=== PATIENT | male | born 1950 | race African-American/Black ===

== ENCOUNTER 2019-02-02 12:36 | Emergency (ER) | payer MEDICARE, MEDICAID ==
[~2019-02-02] VITALS: Ht 182.9 cm; Wt 77.0 kg
[2019-02-02] MEDS ORDERED: HYDROCODONE/ACETAMINOPHEN 5/325MG TABLET PO ONE (14:30)
[2019-02-02] MEDS ORDERED: TETANUS, DIPHTHERIA, PERTUSSIS VAC/PF 0.5ML (>7YR OLD) IM ONE (16:30)
[2019-02-02 16:40] VITALS: BP 156/89
== END 2019-02-02 16:41 | disposition home or self-care (01) ==
LOC: ER 13:36
DX: S90.32XA Contusion of left foot, initial encounter (principal); W22.8XXA Striking against or struck by other objects, initial encounter; Y93.89 Activity, other specified; Y92.018 Other place in single-family (private) house as the place of occurrence of the external cause
CPT/HCPCS: 73610; 73630; 90471; 90715; 99283

== ENCOUNTER 2019-02-24 17:42 | Inpatient (IN) | payer MEDICARE, MEDICAID ==
[~2019-02-24] VITALS: Ht 182.9 cm; Wt 74.4 kg
[2019-02-24] MEDS ORDERED: SODIUM CHLORIDE 0.9% 1,000 ML IV ONE (18:19)
[2019-02-24 18:53] LABS: HEMATOCRIT. 37.9 % (42.0-52.0); HEMOGLOBIN. 12.3 g/dL (14.0-18.0); MEAN CORPUSCULAR HEMOGLOBIN 28.3 pg (28.0-32.0); MEAN CORPUSCULAR VOLUME 87.6 fL (80.0-94.0); MEAN PLATELET VOLUME 6.6 fl (7.4-10.4); PLATELET 165 x1000/uL (130-400); RED BLOOD CELL COUNT 4.33 mill/uL (4.7-6.1); RED CELL DISTRIBUTION WIDTH 13.8 % (11.6-14.6)
[2019-02-24 18:59] LABS: CHLORIDE 111 mEq/L (98-107)
[2019-02-24 19:10] LABS: PLATELET ESTIMATE NORMAL
[2019-02-24] MEDS ORDERED: PIPERACILLIN/TAZ 3.375G PREMIX 50 ML IV NR (20:30)
[2019-02-24] MEDS ORDERED: VANCOMYCIN 1 G PREMIX 200 ML IV NR (20:30)
[2019-02-24] MEDS ORDERED: SODIUM CHLORIDE 0.9% 1000ML BAG (SEPSIS BOLUS) IV ONE (20:30)
[2019-02-24] MEDS ORDERED: SODIUM CHLORIDE 0.9% 2,100 ML IV SCH (21:00)
[2019-02-24] MEDS ORDERED: ZOLPIDEM TARTRATE 5MG TABLET PO PRN (21:30)
[2019-02-24] MEDS ORDERED: ONDANSETRON HCL 4MG/2ML INJ IV PRN (21:30)
[2019-02-24] MEDS ORDERED: ACETAMINOPHEN 325MG TABLET PO PRN (21:30)
[2019-02-24 22:22] LABS: HEPATITIS B SURFACE ANTIGEN NEGATIVE
[2019-02-24 22:51] LABS: HEPATITIS A AB IGM NEGATIVE (NEGATIVE)
[2019-02-24 23:45] VITALS: BP 99/46
[2019-02-25] VITALS: BP 99/46
[2019-02-25] MEDS ORDERED: BICT1TAB PO (01:49)
[2019-02-25] MEDS ORDERED: HYDR-4001 PO (01:56)
[2019-02-25] MEDS ORDERED: CEPH500T PO (01:56)
[2019-02-25] MEDS ORDERED: LINE600T32 MT (02:02)
[2019-02-25] MEDS ORDERED: SULF1TAB48 PO (02:02)
[2019-02-25] MEDS: KETOROLAC 30MG/ML VIAL IV PRN ×2 (02:34→07:39)
[2019-02-25] MEDS: PIPERACILLIN/TAZ 3.375G PREMIX 50 ML IV SCH ×3 (03:24→18:27)
[2019-02-25 04:00] VITALS: BP 98/48
[2019-02-25 06:28] LABS: HEMOGLOBIN. 11.1 g/dL (14.0-18.0); MEAN CORPUSCULAR HEMOGLOBIN 28.7 pg (28.0-32.0); MEAN CORPUSCULAR VOLUME 85.7 fL (80.0-94.0); MEAN PLATELET VOLUME 6.9 fl (7.4-10.4); PLATELET 163 x1000/uL (130-400); RED BLOOD CELL COUNT 3.85 mill/uL (4.7-6.1); RED CELL DISTRIBUTION WIDTH 13.6 % (11.6-14.6)
[2019-02-25 06:44] LABS: CHLORIDE 108 mEq/L (98-107)
[2019-02-25 08:00] VITALS: BP 120/67
[2019-02-25] MEDS: VANCOMYCIN 750 MG PREMIX 150 ML IV SCH ×2 (08:34→21:27)
[2019-02-25] MEDS ORDERED: MORPHINE SULFATE 2 MG/ML CPJ (NOT FOR IM USE) IV PRN (09:30)
[2019-02-25] MEDS: MORPHINE SULFATE 4 MG/ML CPJ (NOT FOR IM USE) IV PRN ×3 (11:14→23:05)
[2019-02-25 11:36] VITALS: BP 106/55
[2019-02-25 12:58] LABS: INR 1.3; PROTHROMBIN TIME 13.1 sec (9.6-11.0)
[2019-02-25] MEDS: HYDROCODONE/ACETAMINOPHEN 5/325MG TABLET PO PRN ×2 (13:07→17:38)
[2019-02-25 16:00] VITALS: BP 109/69
[2019-02-25] MEDS ORDERED: PIPERACILLIN/TAZ 3.375G PREMIX 50 ML IV SCH (17:30)
[2019-02-25 17:31] LABS: PLATELET ESTIMATE NORMAL
[2019-02-25] MEDS: BIKTARVY PO SCH (17:32)
[2019-02-25 20:00] VITALS: BP 100/53
[2019-02-26] VITALS: BP 113/63
[2019-02-26] MEDS: PIPERACILLIN/TAZ 3.375G PREMIX 50 ML IV SCH ×3 (00:24→13:18)
[2019-02-26 04:00] VITALS: BP 108/61
[2019-02-26 06:17] LABS: BASOPHILS % 0.4 % (0.0-2.0); HEMATOCRIT. 32.6 % (42.0-52.0); HEMOGLOBIN. 10.8 g/dL (14.0-18.0); MEAN CORPUSCULAR HEMOGLOBIN 28.1 pg (28.0-32.0); MEAN PLATELET VOLUME 7.5 fl (7.4-10.4); MONOCYTES % 9.5 % (2.0-8.0); NEUTROPHILS % 60.1 % (40.0-76.0); PLATELET 143 x1000/uL (130-400); RED BLOOD CELL COUNT 3.84 mill/uL (4.7-6.1); RED CELL DISTRIBUTION WIDTH 13.8 % (11.6-14.6)
[2019-02-26 06:31] LABS: CLARITY URINE CLEAR (CLEAR); COLOR URINE YELLOW (YELLOW); KETONES URINE NEGATIVE (NEGATIVE); LEUKOCYTE ESTERASE URINE NEGATIVE (NEGATIVE); NITRITE URINE NEGATIVE (NEGATIVE); OCCULT BLOOD URINE NEGATIVE (NEGATIVE); PH URINE 5.5 (4.5-8.0); PROTEIN URINE NEGATIVE (NEGATIVE); SPECIFIC GRAVITY URINE 1.016 (1.005-1.030); UROBILINOGEN URINE 0.2 E.U./dL (0.2-1.0)
[2019-02-26 06:48] LABS: *AMPHETAMINES SCREEN URINE NEGATIVE (NEGATIVE)
[2019-02-26 06:49] LABS: *BARBITURATES SCREEN URINE NEGATIVE (NEGATIVE); *BENZODIAZEPINES SCREEN URINE NEGATIVE (NEGATIVE); *COCAINE SCREEN URINE PRESUMTIVE POSITIVE (NEGATIVE); METHADONE URINE SCREEN NEGATIVE (NEGATIVE); OPIATES URINE SCREEN PRESUMTIVE POSITIVE (NEGATIVE); PHENCYCLIDINE URINE SCREEN NEGATIVE (NEGATIVE)
[2019-02-26 06:50] LABS: CANNABINOID URINE SCREEN NEGATIVE (NEGATIVE)
[2019-02-26] MEDS ORDERED: PROPOFOL 200MG/20ML VIAL IV ONE (06:53)
[2019-02-26] MEDS ORDERED: MIDAZOLAM HCL 2 MG/2 ML VIAL ONE (06:53)
[2019-02-26] MEDS ORDERED: FENTANYL CITRATE/PF 50MCG/ML 2ML VIAL ONE (06:53)
[2019-02-26] MEDS ORDERED: LIDOCAINE HCL/PF 1% 10 MG/ML 5ML VIAL ONE (06:56)
[2019-02-26] MEDS ORDERED: LIDOCAINE HCL/EPINEPHRINE 1%-EPI 1:100,000 20 ML VIAL ONE (06:59)
[2019-02-26 07:12] LABS: CHLORIDE 108 mEq/L (98-107)
[2019-02-26] MEDS ORDERED: BACITRACIN 50,000 UNITS/VIAL ONE (07:21)
[2019-02-26] MEDS ORDERED: LIDOCAINE HCL 1% 20ML VIAL (Pyxis) INJ ONE (07:35)
[2019-02-26] MEDS ORDERED: BUPIVACAINE HCL/PF 0.5% (5MG/ML) 10ML ONE (07:36)
[2019-02-26 08:14] LABS: ABSOLUTE EOSINOPHILS 0.1 x10E3/uL (0.0-0.4); ABSOLUTE LYMPHOCYTES 0.3 x10E3/uL (0.7-3.1); ABSOLUTE MONOCYTES 0.1 x10E3/uL (0.1-0.9); ABSOLUTE NEUTROPHILS 5.9 x10E3/uL (1.4-7.0); BASOPHILS 0 % (Not Estab.); HEMATOCRIT 32.3 % (37.5-51.0); HEMOGLOBIN 10.7 g/dL (13.0-17.7); IMMATURE GRANULOCYTES 0 % (Not Estab.); LYMPHOCYTES 5 % (Not Estab.); MEAN CORPUSCULAR HGB CONC. 33.1 g/dL (31.5-35.7); MEAN CORPUSCULAR VOLUME 85 fL (79-97); MONOCYTES 2 % (Not Estab.); NEUTROPHILS 92 % (Not Estab.); PLATELETS 167 x10E3/uL (150-379); RBC 3.82 x10E6/uL (4.14-5.80); RED CELL DISTRIBUTION WIDTH 14.2 % (12.3-15.4); WBC 6.4 x10E3/uL (3.4-10.8)
[2019-02-26] MEDS ORDERED: HYDROMORPHONE HCL/PF 2MG/ML CPJ IV PRN (08:30)
[2019-02-26] MEDS: BIKTARVY PO SCH (10:20)
[2019-02-26] MEDS ORDERED: VANCOMYCIN 1 G PREMIX 200 ML IV SCH (11:00)
[2019-02-26 12:00] VITALS: BP 116/68
[2019-02-26 16:00] VITALS: BP 114/65
[2019-02-26 16:58] VITALS: BP 114/65
== END 2019-02-26 18:00 | disposition home or self-care (01) | DRG 892 ==
LOC: ER 17:42 → EDBEDREQTM 19:37 → EDBEDREQ 19:37 → EDBEDREQSVC 19:37 → EDBEDREQ 20:26 → EDBEDREQTM 20:26 → ENRESERV 21:04 → 6EST 23:36
PROVIDERS: ADMIT Internal Medicine; ATTEND Internal Medicine
PROC: 0Y9N0ZZ Drainage of Left Foot, Open Approach (ICD-10-PCS; principal; 2019-02-26)
PROC: 0JBR0ZZ Excision of Left Foot Subcutaneous Tissue and Fascia, Open Approach (ICD-10-PCS; 2019-02-26)
DX: L03.116 Cellulitis of left lower limb (principal); B20 Human immunodeficiency virus [HIV] disease; R65.10 Systemic inflammatory response syndrome (SIRS) of non-infectious origin without acute organ dysfunction; E87.8 Other disorders of electrolyte and fluid balance, not elsewhere classified; L97.529 Non-pressure chronic ulcer of other part of left foot with unspecified severity; E44.1 Mild protein-calorie malnutrition; L02.612 Cutaneous abscess of left foot; B19.20 Unspecified viral hepatitis C without hepatic coma; M17.12 Unilateral primary osteoarthritis, left knee; D64.9 Anemia, unspecified; F11.10 Opioid abuse, uncomplicated; F14.10 Cocaine abuse, uncomplicated; I10 Essential (primary) hypertension; R26.81 Unsteadiness on feet; W19.XXXA Unspecified fall, initial encounter; Z68.22 Body mass index [BMI] 22.0-22.9, adult; Y93.89 Activity, other specified; Y92.89 Other specified places as the place of occurrence of the external cause; Y99.8 Other external cause status
CPT/HCPCS: 36415; 71045; 73130; 73590; 73630; 76881; 80048; 80202; 80305; 82962; 83605; 84145; 84484; 85651; 86140; 86359; 86360; 86705; 86709; 86803; 87070; 87075; 87340; 93005; 93970; 96374; 96375; 99285; J1885; J2250; J2270; J2543; J2704; J3010; J3370; J3490; J7030; J7040

== ENCOUNTER 2019-03-02 13:14 | Emergency (ER) | payer MEDICARE, MEDICAID ==
[~2019-03-02] VITALS: Ht 167.6 cm; Wt 80.0 kg
[~2019-03-02 13:14] MED LIST: BICT1TAB PO; HYDR-4001 PO; SULF1TAB48 PO
[2019-03-02 13:16] VITALS: BP 108/78
== END 2019-03-02 16:32 | disposition left against medical advice (07) ==
LOC: ER 13:14
DX: Z53.21 Procedure and treatment not carried out due to patient leaving prior to being seen by health care provider (principal)